=== PATIENT | male | born 1995 | race Caucasian/White ===

== ENCOUNTER 2020-10-14 20:28 | Emergency (ER) | payer OTHER, SELFPAY ==
--- NOTE | ~2020-10-14 | XR_ITS ---
EXAMINATION: XR wrist RT min 3V DATE: 10/14/2020 21:59 INDICATION: Right wrist pain. TECHNIQUE: 4 views of right wrist were obtained. COMPARISON: None. FINDINGS: Bone alignment is normal. No fracture. Joint spaces are well maintained. IMPRESSION: 1. Normal right wrist. Reviewed, dictated and finalized at location A. IMPRESSION: 1. Normal right wrist.
[2020-10-14 21:25] VITALS: BP 137/76; PULSE 86; RESP 17; TEMP 36.1; O2SAT 99
--- NOTE | 2020-10-14 22:20 | ED.UPPEXIN ---
HPI - Extremity Injury (Upper) General Chief Complaint: Extremity Injury, Upper Stated Complaint: R wrist pain Time Seen by Provider: 10/14/20 22:11 Source: patient Mode of arrival: ambulatory Limitations: no limitations History of Present Illness HPI narrative: 25-year-old male Of pain in the back of his right wrist which has been present for a while, but additionally for the last couple days it seems to be shooting up his arm No associated numbness or weakness Seems to be worse with wrist extension No history of any direct traumatic injury, nor does he give a history of overuse such as hammering or typing or excessive computer mouse usage Related Data Home Medications Medication Instructions Recorded Confirmed No Home Medications 10/14/20 10/14/20 Allergies Allergy/AdvReac Type Severity Reaction Status Date / Time No Known Allergies Allergy Verified 10/14/20 21:25 Review of Systems Musculoskeletal: Musculoskeletal: Denies myalgias, Reports arthralgias and Denies joint swelling Neurologic: Denies focal weakness and Denies numbness PMFSH Social History Social History Gender identity (if verbalized by the patient): Male Exam Const: General: cooperative, no acute distress and alert Orientation/consciousness: patient oriented x3 (alert) HENMT: Head: normocephalic and atraumatic Neck: Neck: supple and no JVD Resp: Effort & Inspection: normal respiratory effort and not labored Auscultation: other (BS =) Skin: General skin exam: normal color and no rashes or lesions noted Neuro: General: patient oriented x3 (alert) Speech: normal speech 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 to light touch Negative Phalen test Extrem: Other: There is a small ganglion cyst on the dorsum of the wrist which is the area where he has tenderness Psych: Affect: normal affect Course Vital Signs Vital signs: Vital Signs Temperature 36.1 C L 10/14/20 21:25 Pulse Rate 86 10/14/20 21:25 Respiratory Rate 17 10/14/20 21:25 Blood Pressure 137/76 10/14/20 21:25 Pulse Oximetry 99 10/14/20 21:25 Temperature 36.1 C L 10/14/20 21:25 Pulse Rate 86 10/14/20 21:25 Respiratory Rate 17 10/14/20 21:25 Blood Pressure 137/76 10/14/20 21:25 Pulse Oximetry 99 10/14/20 21:25 Discharge Plan Discharge Clinical Impression: Ganglion cyst of dorsum of right wrist Patient Disposition: Home, Self-Care Condition: Stable Instructions: Ganglion Cysts (ED), Ganglion Cyst Removal (DC) Additional Instructions: tylenol or aleve for pain as needed Prescriptions: No Action No Home Medications RF: 0 Follow-up/Referrals: Quang Lomax MD [Physician] - (you can contact Dr Lomax and see if he might treat this) Hang Ames MD [Physician] - (primary care or, work through your current primary care to see a hand specialist ) UNKNOWN,DOCTOR [Non-Staff] -
== END 2020-10-14 22:48 | disposition home or self-care (01) ==
PROVIDERS: Emergency Provider Emergency Medicine; PCP Nurse Practitioner Family
DX: M67.431 Ganglion, right wrist (principal)
CPT/HCPCS: 73110; 99283

== ENCOUNTER 2021-01-08 20:55 | Emergency (ER) | payer OTHER, SELFPAY ==
[2021-01-08] VITALS (7 sets, daily range): BP systolic 104–137; BP diastolic 48–77; PULSE 62–70; RESP 18–27; TEMP 36.7; O2SAT 97–99
--- NOTE | ~2021-01-08 | CT_ITS ---
EXAMINATION: CT brain wo con EXAM DATE: 01/08/2021 22:12 INDICATION: Headache, dizziness. Lightheadedness, headache and vomiting. Near syncope. TECHNIQUE: Spiral CT of the head was performed without contrast. Axial, coronal and sagittal images were reviewed. The dose-length product (DLP) for this examination was 605.33 mGy-cm. The exposure w as tailored according to patient size, and iterative reconstruction (ASIR) was used as additional dos e reduction technique. There is no prior study for comparison. FINDINGS: There is no acute intraparenchymal hemorrhage. No evidence of intraparenchymal brain mass lesion. No evidence of acute infarction. There is no mass effect or midline shift. The ventricles are normal in size. There are no extra-axial collections. There are no acute calvarial fractures. T he orbits are unremarkable. Soft tissue is unremarkable. The visualized sinuses and mastoid air marianne ls are well aerated. IMPRESSION: 1. Normal head CT examination. Reviewed, dictated and finalized at location A.
--- NOTE | 2021-01-08 21:29 | ED.HA ---
HPI - Headache General Chief Complaint: Headache Stated Complaint: dizzy, near syncope Time Seen by Provider: 01/08/21 21:05 Source: patient Mode of arrival: ambulatory Limitations: no limitations History of Present Illness HPI Narrative: Patient is a 25-year-old male complaining of a headache, generalized, 8 out of 10, dull, nonradiating accompanied by nausea that started today. 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 Patient states that he feels like he was overheated since its been very hot today. Patient denies any speech or visual disturbance, focal weakness or numbness, unsteady gait, vomiting, chest pain, shortness of breath, abdominal pain, fever or chills. Related Data Home Medications Medication Instructions Recorded Confirmed No Home Medications 01/08/21 01/08/21 Allergies Allergy/AdvReac Type Severity Reaction Status Date / Time No Known Allergies Allergy Verified 01/08/21 21:05 Review of Systems Review of Systems: All systems reviewed & are unremarkable except as noted in HPI and below Constitutional: Constitutional: Denies body ache(s), Denies chills, Denies excessive sweating, Denies fatigue, Denies fever(s), Denies headache(s), Denies lethargy, Denies malaise, Denies weakness and Denies weight loss Eyes: Eyes: Denies blurry vision, Denies change in vision and Denies loss of vision ENT: Denies dizziness, Denies ear discharge, Denies headache(s), Denies lip swelling, Denies epistaxis, Denies nasal congestion, Denies neck pain, Denies throat swelling and Denies tongue swelling Cardiovascular: Cardiovascular: Denies chest pain, Denies chest pain at rest, Denies chest pain with activity, Denies diaphoresis, Denies rapid heart rate, Denies edema, Denies irregular heart rhythm, Denies lightheadedness, Denies palpitations, Denies dyspnea and Denies dyspnea on exertion Respiratory: Respiratory: Denies chest congestion, Denies cough, Denies hemoptysis, Denies dyspnea and Denies dyspnea on exertion Gastrointestinal: Gastrointestinal: Denies abdominal pain, Denies melena, Denies hematochezia, Denies diarrhea, Denies vomiting and Denies hematemesis Musculoskeletal: Musculoskeletal: Denies abnormal gait, Denies deformity, Denies joint swelling, Denies limited range of motion, Denies neck pain and Denies numbness Neurologic: Denies Abnormal speech present, Denies abnormal gait, Denies confusion, Denies dizziness, Denies focal weakness, Denies loss of vision, Denies numbness, Denies Other visual disturbances, Denies Sensory deficit (Neuro) and Denies weakness Psychiatric: Psychiatric: Denies confusion, Denies depression, Denies auditory hallucinations, Denies homicidal ideation and Denies suicidal ideation Endocrine: Endocrine: Denies cold intolerance, Denies excessive sweating, Denies fatigue, Denies heat intolerance and Denies palpitations Hematologic/Lymphatic: Hematologic/Lymphatic: Denies easy bleeding and Denies easy bruising Allergic/Immunologic: Allergic/Immunologic: Denies lip swelling, Denies throat swelling and Denies tongue swelling PMFSH Social History Social History Gender identity (if verbalized by the patient): Male Comments Past medical history: None Family history: Negative for coronary disease or CVA or aneurysm Social history: Non-smoker no EtOH or drug use Exam Const: General: cooperative, healthy appearing, comfortable, no acute distress, well developed, alert and awake; No confusion Orientation/consciousness: oriented to person, oriented to place, oriented to time, patient oriented x3 and No confusion Limitations: no limitations HENMT: Head: normal to inspection, normocephalic and atraumatic Ears: hearing grossly normal bilaterally, TM normal on the right and TM normal on the left General nose exam: Normal external nose present, Normal nares present and No nasal discharge present Face and sinus: normal
[2021-01-08] MEDS: SODIUM CHLORIDE 0.9% IV 1,000 ML 999 ML IV CONT (21:35)
[2021-01-08 21:46] LABS: Basophils Percent Auto 0.5 % (0.2-1.2); Eosinophils Absolute Auto 0.1 K/mm3 (0-0.3); Eosinophils Percent Auto 1.3 % (0-4.4); Hematocrit 39.9 % (42.0-52.0); Hemoglobin 13.8 g/dL (14.0-18.0); Immature Granulocyte Absolute 0.03 K/mm3 (0.00-0.031); Immature Granulocyte Percent A 0.3 % (0-0.5); Lymphocytes Percent Auto 30.1 % (18.3-44.2); Mean Corpuscular HGB Conc 34.6 g/dl (32-36); Mean Corpuscular Hemoglobin 30.3 pg (26-34); Mean Corpuscular Volume 87.7 fl (80-100); Mean Platelet Volume 9.8 fl (7.4-10.4); Monocytes Absolute Auto 0.7 K/mm3 (0.1-0.6); Monocytes Percent Auto 8.3 % (2.6-8.5); Neutrophils Absolute Auto 5.1 K/mm3 (1.3-6.7); Neutrophils Percent Auto 59.5 % (45.5-73.1); Platelet Count Result 227 k/mm3 (150-375); Red Blood Count 4.55 M/mm3 (4.6-6.20); Red Cell Distribution Width 11.8 % (11.5-14.5); White Blood Count 8.6 K/mm3 (4.5-10.0)
[2021-01-08 21:52] LABS: Alanine Aminotransferase 45 U/L (4-50); Albumin Level 4.3 g/dL (3.5-5.1); Alkaline Phosphatase 57 U/L (38-126); Anion Gap 9 mmol/L (8-16); Aspartate Amino Transferase 39 U/L (17-59); Bilirubin,Total 0.1 mg/dL (0.2-1.3); Blood Urea Nitrogen 11 mg/dL (9-20); Calcium 9.1 mg/dL (8.4-10.2); Carbon Dioxide 28 mmol/L (22-30); Chloride 104 mmol/L (98-107); Creatine Kinase 90 U/L (55-170); Estimated CRCL calculation 108 ml/min; Estimated Glomerular Filt Rate > 60; Glucose 77 mg/dL (75-110); Potassium 3.7 mmol/L (3.4-5.0); Sodium 141 mmol/L (137-145)
--- NOTE | 2021-01-08 22:33 | PC.NURSE ---
Pt states headache has not improved much after 1st liter of NS. Dr. Ramos made aware.
[2021-01-08] MEDS: HYDROcodone/acetaminophen (*CRX) 5-325 MG TABLET 1 TAB PO (22:47)
[2021-01-08] MEDS: KETOROLAC 30 MG/ML VIAL (*BKC) IV PUSH (22:47)
[2021-01-08] MEDS: PROMETHAZINE HCL 25 MG/ML AMPUL 12.5 MG IV PUSH (22:49)
--- NOTE | 2021-01-08 23:40 | PC.NURSE ---
EDMD presented to bedside to update pt and family on poc. All questions and concerns addressed.
--- NOTE | 2021-01-09 02:04 | PC.NURSE ---
Pt states he feels better and is ready for dc. Pt resting on cart with family member at bedside and has no complaint or concerns at this time. Pt remains alert and oriented x4 and in no obvious distress.
== END 2021-01-08 23:50 | disposition home or self-care (01) ==
PROVIDERS: Emergency Provider Emergency Medicine; PCP Nurse Practitioner Family
DX: T67.5XXA Heat exhaustion, unspecified, initial encounter (principal); R51.9 Headache, unspecified; X30.XXXA Exposure to excessive natural heat, initial encounter
CPT/HCPCS: 36415; 70450; 80053; 82550; 85025; 96361; 96374; 96375; 99284; A9270; J1885; J2550; J7030

== ENCOUNTER 2021-05-22 23:36 | Emergency (ER) | payer MEDICAID, SELFPAY ==
--- NOTE | ~2021-05-22 | CT_ITS ---
EXAMINATION: CT abdomen pelvis w con DATE: 05/23/2021 02:03 INDICATION: Abdominal pain. TECHNIQUE: Computed tomography (CT) of the abdomen and pelvis was performed with 100 mL Omnipaque 350 intravenous contrast. Automated exposure control and iterative reconstruction technique were employe d. The dose-length product was 1119.65 mGy-cm. COMPARISON: None. FINDINGS: The visualized portions of the lung bases are clear without pneumonia or pleural effusion. The heart size is normal. No pericardial effusion. The liver, gallbladder, spleen, pancreas, adrenal glands, and kidneys are normal. There are no dilated loops of bowel. The appendix is normal. There ar e no pathologically enlarged lymph nodes. There is no free intraperitoneal fluid. 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 There is mild lumbar spondylosis. IMPRESSION: 1. No etiology for the patient's symptoms. Reviewed, dictated and finalized at location A. [facility]
[2021-05-22 23:56] VITALS: BP 136/83; PULSE 56; RESP 18; TEMP 36.4; O2SAT 100
[2021-05-23 00:31] VITALS: BP 137/88; PULSE 62; RESP 20; TEMP 36.8; O2SAT 98
[2021-05-23 00:31] LABS: Add Urine Microscopic? NO; Appearance Urine Clear (Clear); Bilirubin Urine Negative (Negative); Blood Urine Negative (Negative); Color Urine Yellow (Yellow); Glucose Urine UA Negative (Negative); Ketones Urine Negative (Negative); Leukocyte Esterase Ur Negative LEU/UL (Negative); Nitrate Urine Negative (Negative); Protein Urine Negative (Negative); Specific Grav Ur 1.016 (1.001-1.035); Urobilinogen Urine Negative mg/dL (<2.0)
[2021-05-23 01:11] LABS: Basophils Absolute Auto 0.1 K/mm3 (0.0-0.1); Basophils Percent Auto 0.7 % (0.2-1.2); Eosinophils Absolute Auto 0.2 K/mm3 (0-0.3); Hematocrit 41.8 % (42.0-52.0); Hemoglobin 14.6 g/dL (14.0-18.0); Immature Granulocyte Absolute 0.01 K/mm3 (0.00-0.031); Immature Granulocyte Percent A 0.1 % (0-0.5); Lymphocytes Absolute Auto 2.72 K/mm3 (0.9-3.2); Lymphocytes Percent Auto 37.2 % (18.3-44.2); Mean Corpuscular HGB Conc 34.9 g/dl (32-36); Mean Corpuscular Hemoglobin 30.1 pg (26-34); Mean Corpuscular Volume 86.2 fl (80-100); Mean Platelet Volume 8.8 fl (7.4-10.4); Monocytes Absolute Auto 0.7 K/mm3 (0.1-0.6); Monocytes Percent Auto 9.7 % (2.6-8.5); Neutrophils Absolute Auto 3.6 K/mm3 (1.3-6.7); Neutrophils Percent Auto 49.3 % (45.5-73.1); Platelet Count Result 238 k/mm3 (150-375); Red Blood Count 4.85 M/mm3 (4.6-6.20); Red Cell Distribution Width 11.6 % (11.5-14.5); White Blood Count 7.3 K/mm3 (4.5-10.0)
[2021-05-23 01:16] VITALS: BP 125/85; PULSE 62; RESP 18; O2SAT 98
[2021-05-23] MEDS: SODIUM CHLORIDE 0.9% IV 1,000 ML 999 ML IV CONT (01:17)
[2021-05-23] MEDS: ONDANSETRON INJ 4 MG/2 ML VIAL IV PUSH (01:18)
[2021-05-23] MEDS: DICYCLOMINE HCL INJ 20 MG/2 ML VIAL IM (01:20)
[2021-05-23 01:27] LABS: Alanine Aminotransferase 59 U/L (4-50); Albumin Level 4.5 g/dL (3.5-5.1); Alkaline Phosphatase 70 U/L (38-126); Anion Gap 7 mmol/L (8-16); Aspartate Amino Transferase 38 U/L (17-59); Bilirubin,Total 0.5 mg/dL (0.2-1.3); Blood Urea Nitrogen 10 mg/dL (9-20); Calcium 9.4 mg/dL (8.4-10.2); Carbon Dioxide 29 mmol/L (22-30); Chloride 103 mmol/L (98-107); Estimated CRCL calculation 157 ml/min; Estimated Glomerular Filt Rate > 60; Glucose 111 mg/dL (65-110); Lipase 109 U/L (23-300); Potassium 3.5 mmol/L (3.4-5.0); Sodium 139 mmol/L (137-145)
[2021-05-23 01:46] VITALS: BP 126/72; PULSE 54; RESP 25; O2SAT 99
--- NOTE | 2021-05-23 02:21 | ED.GENADULT ---
HPI - General Adult General Chief complaint: Abdominal Pain Stated complaint: ABD pain with nausea staring today Time Seen by Provider: 05/23/21 00:57 History of Present Illness HPI narrative: Patient was [age]-year-old gentleman who presents the emergency department with chief complaint of abdominal pain. Patient reports that started having discomfort in the lower parts of his abdomen. Patient states been going on for approximately 3 days reports has had some nausea with this denies vomiting reports has had diarrhea this is been pure liquid stool. Patient states symptoms not improved by anything nor they worsened by infection Related Data Allergies Allergy/AdvReac Type Severity Reaction Status Date / Time No Known Allergies Allergy Verified 05/23/21 00:38 Review of Systems Review of Systems: A 10 system review of systems was completed on the patient and is negative except for what is stated in the HPI. Nursing and ancillary documentation was reviewed. [facility] Social History Social History Gender identity (if verbalized by the patient): Male Exam Narrative: GENERAL: Well-appearing, well-nourished, and in no acute distress. HEAD: Normocephalic, atraumatic. EYES: PERRLA and EOMI. ENT: Nares clear, no rhinorrhea or epistaxis. Mucous membranes moist. NECK: Supple. CHEST: Clear to auscultation. No respiratory distress. HEART: Regular rate and rhythm. No murmur heard. Normal peripheral pulses. ABDOMEN: Soft, diffuse tenderness to palpation, nondistended, normal active bowel sounds. EXTREMITIES: Normal range of motion. No edema. SKIN: Warm, dry, no rash. NEURO: No focal deficits. Alert and oriented x3. PSYCH: Normal mood and affect. Course Course Emergency Course: CT scan showed no evidence of acute abnormality Laboratory studies were reviewed and showed no evidence of acute abnormality Vital Signs Vital signs: Vital Signs Temperature 36.4 C L 05/22/21 23:56 Pulse Rate 56 L 05/22/21 23:56 Respiratory Rate 18 05/22/21 23:56 Blood Pressure 136/83 05/22/21 23:56 Pulse Oximetry 100 05/22/21 23:56 Temperature 36.8 C 05/23/21 00:31 Pulse Rate 54 L 05/23/21 01:46 Respiratory Rate 25 H 05/23/21 01:46 Blood Pressure 126/72 05/23/21 01:46 Pulse Oximetry 99 05/23/21 01:46 Medical Decision Making Vital Signs Vital Signs: Vital Signs Temperature 36.4 C L 05/22/21 23:56 Pulse Rate 56 L 05/22/21 23:56 Respiratory Rate 18 05/22/21 23:56 Blood Pressure 136/83 05/22/21 23:56 Pulse Oximetry 100 05/22/21 23:56 Temperature 36.8 C 05/23/21 00:31 Pulse Rate 54 L 05/23/21 01:46 Respiratory Rate 25 H 05/23/21 01:46 Blood Pressure 126/72 05/23/21 01:46 Pulse Oximetry 99 05/23/21 01:46 Lab Data Result diagrams: 05/23/21 01:04 05/23/21 01:04 Labs: Lab Results 05/22/21 05/23/21 05/23/21 Range/Units 23:48 01:04 01:04 WBC 7.3 (4.5-10.0) K/mm3 RBC 4.85 (4.6-6.20) M/mm3 Hgb 14.6 (14.0-18.0) g/dL Hct 41.8 L (42.0-52.0) % MCV 86.2 (80-100) fl MCH 30.1 (26-34) pg MCHC 34.9 (32-36) g/dl RDW 11.6 (11.5-14.5) % Plt Count 238 (150-375) k/mm3 MPV 8.8 (7.4-10.4) fl Immature Gran % (Auto) 0.1 (0-0.5) % Neut % (Auto) 49.3 (45.5-73.1) % Lymph % (Auto) 37.2 (18.3-44.2) % [place] % (Auto) 9.7 H (2.6-8.5) % Eos % (Auto) 3.0 (0-4.4) % Baso % (Auto) 0.7 (0.2-1.2) % Lymph # (Auto) 2.72 (0.9-3.2) K/mm3 [place] # (Auto) 0.7 H (0.1-0.6) K/mm3 Eos # (Auto) 0.2 (0-0.3) K/mm3 Baso # (Auto) 0.1 (0.0-0.1) K/mm3 Abs Immat Gran (auto) 0.01 (0.00-0.031) K/mm3 Absolute Neuts (auto) 3.6 (1.3-6.7) K/mm3 Absolute Nucleated RBC 0.0 (0.0-0.012) K/mm3 Nucleated RBC % 0.0 (0.0-0.2) % Sodium 139 (137-145) mmol/L Potassium 3.5 (3.4-5.0) mmol/L Chloride 103 (98-107) mmol/L Carb
[2021-05-23 02:46] VITALS: BP 122/76; PULSE 61; RESP 26; O2SAT 98
[2021-05-23 03:01] VITALS: BP 124/74; PULSE 71; RESP 17; O2SAT 97
[2021-05-23 03:33] VITALS: BP 123/74; PULSE 60; RESP 18; O2SAT 96
== END 2021-05-23 03:35 | disposition home or self-care (01) ==
PROVIDERS: Family Medicine; Emergency Provider Emergency Medicine; PCP Nurse Practitioner Family
DX: R10.84 Generalized abdominal pain (principal)
CPT/HCPCS: 36415; 74177; 80053; 81003; 83690; 85025; 96361; 96372; 96374; 99284; J0500; J2405; J7030; Q9967